=== PATIENT | male | born 1960 | race Caucasian/White ===

== ENCOUNTER 2023-07-05 07:02 | Emergency (ER) | payer OTHER ==
[2023-07-05 07:15] VITALS: RESP 18; BMI 25.9
[2023-07-05] MEDS ORDERED: SODIUM CHLORIDE 0.9% 500 ML INFUS.BAG IV ONE (08:01)
[2023-07-05] MEDS ORDERED: ONDANSETRON 4 MG/2 ML VIAL IVPUSH ONE (08:02)
[2023-07-05] MEDS ORDERED: FAMOTIDINE 10 MG TABLET PO ONE (08:03)
[2023-07-05] MEDS ORDERED: MAG HYDROX/AL HYDROX/SIMETH 30 ML UNIT-DOSE CUP PO ONE (08:04)
[2023-07-05] MEDS ORDERED: ACETAMINOPHEN 1000 MG/100 ML BAG IVPB ONE (08:14)
[2023-07-05] MEDS ORDERED: ACETAMINOPHEN INJECTION 100 ML IVPB ONE (08:17)
[2023-07-05] MEDS ORDERED: MAG HYDROX/AL HYDROX/SIMETH 30 ML UNIT-DOSE CUP ONE (08:18)
[2023-07-05] MEDS ORDERED: ONDANSETRON 4 MG/2 ML VIAL ONE (08:18)
[2023-07-05] MEDS ORDERED: FAMOTIDINE 20 MG TABLET ONE (08:19)
[2023-07-05 08:31] LABS: HEMATOCRIT 41.2 % (35.4-49); HEMOGLOBIN 14.7 GM/dL (11.7-16.9); MCH 33.4 pg (25.7-33.7); MCHC 35.7 g/dl (32.0-35.9); MEAN CELL VOLUME 93.5 fl (80-96); MEAN PLT VOLUME 8.5 fl (7.5-11.1); PLATELET COUNT 197 10^3/uL (134-434); RDW 11.4 % (11.9-15.9); WHITE BLOOD COUNT 6.2 K/mm3 (4.0-10.0)
[2023-07-05 08:36] LABS: ADD RBC MORPHOLOGY YES
[2023-07-05 09:05] LABS: POTASSIUM 3.9 mmol/L (3.5-5.1)
[2023-07-05 09:07] LABS: CALCIUM 9.2 mg/dL (8.5-10.1)
[2023-07-05 09:08] LABS: ALBUMIN 3.8 g/dl (3.4-5.0); BLOOD UREA NITROGEN 26.1 mg/dL (7-18)
[2023-07-05 09:11] LABS: CREATININE 0.8 mg/dL (0.55-1.3)
[2023-07-05 09:12] LABS: TOT PROT 7.7 g/dl (6.4-8.2)
[2023-07-05 09:13] LABS: BILIRUBIN,TOTAL 0.8 mg/dL (0.2-1)
[2023-07-05 10:57] VITALS: BP 109/68; PULSE 84; TEMP 98.4
[2023-07-05 11:03] LABS: ANISOCYTOSIS 0; HELMET CELLS 0; HOWELL-JOLLY BODIES 0; MACROCYTOSIS 0; OVALOCYTE 0; ROULEAU 0; SICKELED CELLS 0; TARGET CELLS 0; TEAR DROP CELLS 0; TOXIC GRANULATION 0
== END 2023-07-05 11:11 | disposition home or self-care (01) ==
LOC: JER 07:02
PROC: 3E033NZ Introduction of Analgesics, Hypnotics, Sedatives into Peripheral Vein, Percutaneous Approach (ICD-10-PCS; principal; 2023-07-05)
PROC: 3E033GC Introduction of Other Therapeutic Substance into Peripheral Vein, Percutaneous Approach (ICD-10-PCS; 2023-07-05)
DX: R05.9 Cough, unspecified (principal); R11.2 Nausea with vomiting, unspecified; R10.84 Generalized abdominal pain; R10.13 Epigastric pain; Z20.822 Contact with and (suspected) exposure to COVID-19
CPT/HCPCS: 0241U-QW; 36415; 71046-TC-FY; 71275-TC; 80053; 82550; 82553; 84484; 85025; 93005; 93010; 99285-25; Q9967